=== PATIENT | male | born 1950 | race Caucasian/White ===

== ENCOUNTER → 2017-02-06 09:11 | Outpatient (CLI) | payer OTHER ==
[2017-02-06 10:04] LABS: HEMOGLOBIN A1C 5.8 % (4.8-6.0)
== END | disposition home or self-care (01) ==
LOC: D.LAB 09:11
PROVIDERS: Family Medicine
DX: E11.9 Type 2 diabetes mellitus without complications (principal)

== ENCOUNTER → 2017-08-06 07:51 | Outpatient (CLI) | payer MEDICARE, BC ==
[2017-08-06 08:28] LABS: BASOPHILS 0.4 % (0-2); EOSINOPHILS 1.8 % (0-7); HEMATOCRIT 38.9 % (42.0-54.0); IMMATURE GRANULOCYTES 0.2 % (0-5); LYMPHOCYTES 21.8 % (15-50); MCH 32.5 pg (26.0-34.0); MCV 90.3 fL (80.0-100.0); MEAN PLATELET VOLUME 11.4 fL (7.4-10.4); MONOCYTES 6.7 % (2-11); NEUTROPHILS 69.1 % (40-80); PLATELET COUNT 134 10x3/uL (130-400); RBC 4.31 10x6/uL (4.20-6.10); RDW 13.2 % (11.5-14.5); WBC 5.1 10x3/uL (4.8-10.8)
[2017-08-06 08:36] LABS: HEMOGLOBIN A1C 6.6 % (4.8-6.0)
[2017-08-06 08:57] LABS: BILIRUBIN - TOTAL 1.1 mg/dL (0.2-1.3); CALCIUM 9.2 mg/dL (8.5-10.1); CHOL - HDL RATIO 4.9 ratio (2.3-4.9); CREATININE - SERUM 1.2 mg/dL (0.6-1.3); LDL-HDL RATIO 2.8 ratio (1.5-3.5); PROTEIN - SERUM 7.2 g/dL (6.4-8.2); THYROID STIMULATING HORMONE 2.9 uIU/mL (0.36-3.74)
== END | disposition home or self-care (01) ==
LOC: D.LAB 07:51
PROVIDERS: Family Medicine
DX: Z12.5 Encounter for screening for malignant neoplasm of prostate (principal); Z00.00 Encounter for general adult medical examination without abnormal findings; E11.9 Type 2 diabetes mellitus without complications; I10 Essential (primary) hypertension; E78.81 Lipoid dermatoarthritis

== ENCOUNTER → 2017-11-05 08:23 | Outpatient (CLI) | payer MEDICARE, BC ==
[2017-11-05 09:41] LABS: HEMOGLOBIN A1C 6.3 % (4.8-6.0)
== END | disposition home or self-care (01) ==
LOC: D.LAB 08:23
PROVIDERS: Family Medicine
DX: E11.9 Type 2 diabetes mellitus without complications (principal)

== ENCOUNTER → 2018-04-21 08:22 | Outpatient (CLI) | payer MEDICARE, BC ==
[2018-04-21 09:00] LABS: APPEARANCE CLEAR (CLEAR); BILIRUBIN NEGATIVE (NEGATIVE); COLOR YELLOW (YELLOW); GLUCOSE NEGATIVE (NEGATIVE); KETONE NEGATIVE (NEGATIVE); NITRITE NEGATIVE (NEGATIVE); PROTEIN NEGATIVE (NEGATIVE); SPECIFIC GRAVITY 1.005 (1.005-1.020); UROBILINOGEN NORMAL (NORMAL)
== END | disposition home or self-care (01) ==
LOC: D.LAB 08:00
PROVIDERS: Family Medicine
DX: E11.9 Type 2 diabetes mellitus without complications (principal)

== ENCOUNTER → 2018-08-18 08:32 | Outpatient (CLI) | payer MEDICARE, BC ==
[2018-08-18 09:24] LABS: BASOPHILS 0.5 % (0-2); EOSINOPHILS 1.6 % (0-7); HEMATOCRIT 32.3 % (42.0-54.0); HEMOGLOBIN 10.2 g/dL (13.5-17.5); LYMPHOCYTES 22.6 % (15-50); MCH 24.6 pg (26.0-34.0); MCHC 31.6 g/dL (31.0-37.0); MEAN PLATELET VOLUME 10.2 fL (7.4-10.4); MONOCYTES 7.2 % (2-11); NEUTROPHILS 68.1 % (40-80); RBC 4.14 10x6/uL (4.20-6.10); RDW 14.4 % (11.5-14.5); WBC 5.7 10x3/uL (4.8-10.8)
[2018-08-18 09:26] LABS: PLATELET COUNT 180 10x3/uL (130-400)
[2018-08-18 09:54] LABS: ANION GAP 16.7 mmol/L (8-16); BILIRUBIN - TOTAL 0.73 mg/dL (0.2-1.3); CARBON DIOXIDE 21.4 mmol/L (21.0-32.0); CHOL - HDL RATIO 5.5 ratio (2.3-4.9); CREATININE - SERUM 1.2 mg/dL (0.6-1.3); LDL-HDL RATIO 3.4 ratio (1.5-3.5); POTASSIUM - SERUM 4.1 mmol/L (3.5-5.1); PROTEIN - SERUM 7.6 g/dL (6.4-8.2); THYROID STIMULATING HORMONE 2.05 uIU/mL (0.36-3.74)
== END | disposition home or self-care (01) ==
LOC: D.LAB 08:32
PROVIDERS: Family Medicine
DX: I10 Essential (primary) hypertension (principal); E11.9 Type 2 diabetes mellitus without complications; Z12.5 Encounter for screening for malignant neoplasm of prostate; E78.81 Lipoid dermatoarthritis; E66.9 Obesity, unspecified

== ENCOUNTER → 2019-03-02 07:26 | Outpatient (CLI) | payer MEDICARE, BC ==
[2019-03-02 08:01] LABS: BASOPHILS 0.8 % (0-2); EOSINOPHILS 5.8 % (0-7); HEMOGLOBIN 10.8 g/dL (13.5-17.5); IMMATURE GRANULOCYTES 0.2 % (0-5); LYMPHOCYTES 23.3 % (15-50); MCH 24.7 pg (26.0-34.0); MCHC 31.8 g/dL (31.0-37.0); MCV 77.6 fL (80.0-100.0); MEAN PLATELET VOLUME 10.8 fL (7.4-10.4); NEUTROPHILS 63.9 % (40-80); PLATELET COUNT 155 10x3/uL (130-400); RBC 4.38 10x6/uL (4.20-6.10); RDW 15.3 % (11.5-14.5)
== END | disposition home or self-care (01) ==
LOC: D.LAB 07:26
PROVIDERS: ATTEND Family Medicine
DX: E11.9 Type 2 diabetes mellitus without complications (principal); D64.9 Anemia, unspecified

== ENCOUNTER 2019-08-18 07:50 | Outpatient (CLI) | payer MEDICARE, BC | END 2019-08-18 07:51 | disposition home or self-care (01) | LOC: D.LAB 07:50 → EDSTATUS 17:26 | PROVIDERS: ATTEND Family Medicine | DX: E11.9 Type 2 diabetes mellitus without complications (principal) ==

== ENCOUNTER → 2020-03-21 07:37 | Outpatient (CLI) | payer MEDICARE, BC | END | disposition home or self-care (01) | LOC: D.LAB 07:37 | PROVIDERS: ATTEND Family Medicine | DX: E11.9 Type 2 diabetes mellitus without complications (principal) ==

== ENCOUNTER 2020-05-14 11:20 | Inpatient (IN) | payer MEDICARE, BC ==
[~2020-05-14] VITALS: Ht 177.8 cm; Wt 93.7 kg
[2020-05-14] MEDS ORDERED: CRESTOR20 MG PO (11:38)
[2020-05-14] MEDS ORDERED: GLUCOPHAGE500 MG PO (11:38)
[2020-05-14] MEDS ORDERED: LISINOPRIL40 MG PO (11:38)
[2020-05-14] MEDS ORDERED: BAYER CHEWABLE81 MG PO (11:39)
[2020-05-14 11:58] LABS: HEMATOCRIT 41.3 % (42.0-54.0); HEMOGLOBIN 14.5 g/dL (13.5-17.5); MCH 31.8 pg (26.0-34.0); MCHC 35.1 g/dL (31.0-37.0); MCV 90.6 fL (80.0-100.0); MEAN PLATELET VOLUME 10.8 fL (7.4-10.4); NEUTROPHILS 75.9 % (40-80); PLATELET COUNT 161 10x3/uL (130-400); RBC 4.56 10x6/uL (4.20-6.10); RDW 13.1 % (11.5-14.5); WBC 6.7 10x3/uL (4.8-10.8)
[2020-05-14 12:11] LABS: APTT 29.7 SECONDS (22.8-39.4); INR 1.06 (0.85-1.17); PROTIME 13.8 SECONDS (11.6-15.0)
[2020-05-14 12:17] LABS: CALC OSMOLALITY 282 mosm/kg (275-300); CALCIUM 9.4 mg/dL (8.5-10.1); CARBON DIOXIDE 23.6 mmol/L (21.0-32.0); CHLORIDE - SERUM 105 mmol/L (98-107); CREATININE - SERUM 1.4 mg/dL (0.6-1.3); GLUCOSE 133 mg/dL (74-106); SODIUM 140 mmol/L (136-145); UREA NITROGEN 19 mg/dL (7-18); eGFR NON AFRICAN AMERICAN 54 mL/min (90-120)
[2020-05-14 12:38] LABS: ALBUMIN 4.2 g/dL (3.4-5.0); ALKALINE PHOSPHATASE 59 U/L (30-120); ALT (SGPT) 17 U/L (10-68); BILIRUBIN - TOTAL 1.31 mg/dL (0.2-1.3); CKMB 1.1 U/L (0.0-3.6); CREATINE KINASE 108 UL (21-232); MAGNESIUM - SERUM 1.7 mg/dL (1.8-2.4); PROTEIN - SERUM 7.5 g/dL (6.4-8.2); TROPONIN-I < 0.017 ng/mL (0.000-0.060)
[2020-05-14 13:30] LABS: BILIRUBIN NEGATIVE (NEGATIVE); GLUCOSE NEGATIVE (NEGATIVE); KETONE SMALL mg/dL (NEGATIVE); NITRITE NEGATIVE (NEGATIVE); UROBILINOGEN 4 mg/dL (NORMAL)
[2020-05-14 13:33] LABS: BACTERIA MODERATE /hpf (NEGATIVE); RED CELLS - URINE >50 /hpf (0-5); WHITE CELLS - URINE OCC /hpf (NEGATIVE)
--- NOTE | 2020-05-14 14:00 | NUR ---
PT LEFT ED FOR CT VIA STRETCHER
--- NOTE | 2020-05-14 14:15 | NUR ---
PT RETURNED TO ED VIA STRETCHER FROM CT
--- NOTE | 2020-05-14 16:42 | NUR ---
DR TEAGUE AT PT BEDSIDE
[2020-05-14 17:02] LABS: CKMB 1.1 U/L (0.0-3.6); CREATINE KINASE 115 UL (21-232)
--- NOTE | 2020-05-14 18:40 | NUR ---
PT LEFT ED VIA WC FOR US
[2020-05-14 18:52] LABS: LDL-HDL RATIO 1.2 ratio (1.5-3.5)
--- NOTE | 2020-05-14 18:56 | NUR ---
PT RETURNED TO ED VIA WC FROM US
--- NOTE | 2020-05-14 21:16 | NUR ---
PT A/O X4. AT BEDSIDE. NS INFUSING AT 125ML/HR. TELEMETRY PLACED ON PT. PT RUNNING 63-SR. BP-214/100. DR. TEAGUE NOTIFIED. 0.1 CLONDINE ORDERED. WILL CONTINUE TO MONITOR. 2116-BP-189/97
[2020-05-15 01:28] LABS: CKMB 1.1 U/L (0.0-3.6); CREATINE KINASE 168 UL (21-232)
[2020-05-15 01:29] LABS: TROPONIN-I 0.064 ng/mL (0.000-0.060)
--- NOTE | 2020-05-15 03:24 | NUR ---
I have reviewed this patient and I concur with the Shift Assessment completed by the Licensed Practical Nurse today this shift.
[2020-05-15 04:04] LABS: HEMATOCRIT 36.6 % (42.0-54.0); LYMPHOCYTES 23.1 % (15-50); MCH 32.2 pg (26.0-34.0); MCHC 35.5 g/dL (31.0-37.0); MCV 90.6 fL (80.0-100.0); MEAN PLATELET VOLUME 10.6 fL (7.4-10.4); NEUTROPHILS 69.4 % (40-80); PLATELET COUNT 139 10x3/uL (130-400); RBC 4.04 10x6/uL (4.20-6.10); WBC 5.9 10x3/uL (4.8-10.8)
[2020-05-15 04:24] LABS: ALBUMIN 3.4 g/dL (3.4-5.0); ALKALINE PHOSPHATASE 49 U/L (30-120); ALT (SGPT) 11 U/L (10-68); BILIRUBIN - TOTAL 1.03 mg/dL (0.2-1.3); CALC OSMOLALITY 281 mosm/kg (275-300); CALCIUM 8.1 mg/dL (8.5-10.1); CHLORIDE - SERUM 108 mmol/L (98-107); CKMB 1.2 U/L (0.0-3.6); CREATINE KINASE 175 UL (21-232); CREATININE - SERUM 1.1 mg/dL (0.6-1.3); GLUCOSE 131 mg/dL (74-106); POTASSIUM - SERUM 3.7 mmol/L (3.5-5.1); PROTEIN - SERUM 6.2 g/dL (6.4-8.2); SODIUM 140 mmol/L (136-145); TROPONIN-I 0.066 ng/mL (0.000-0.060); UREA NITROGEN 14 mg/dL (7-18); eGFR NON AFRICAN AMERICAN 71 mL/min (90-120)
[2020-05-15 12:40] VITALS: BP 150/88; Ht 177.8 cm; Wt 93.7 kg
--- NOTE | 2020-05-15 14:37 | NUR ---
PT HAS BEEN ALERT AND ORIENTED THROUGHOUT THE DAY, THAT BEING SAID PT APPEARS TO HAVE DIFFICULTY WITH BASIC TASKS. WHEN TRYINGT O PUT ON A GOWN THIS MORNING WE HAD TO EXPLAIN MULTIPLE TIMES TO PT HOW TO PUT HIS ARMS TROUGH THE ARM HOLES. PT STILL DID IT WRONG EVERY TIME, EVEN WITH MYSELF AND ANOTHER HOLDING THE GOWN UP FOR HIM. IT APPEARS IF EVERY TASK TAKES AN UNUSUAL AMOUNT OF CONCENTRATION, HIS CONFIRMED THIS IS NOT HIS NORMAL.
[2020-05-15 18:06] VITALS: BP 181/90
--- NOTE | 2020-05-15 18:08 | NUR ---
PT AWAKE AND ORIENTED, NO COMPLAINTS OR CONCERNS. CL IN REACH, SRX2.
--- NOTE | 2020-05-15 19:44 | NUR ---
RECIEVED UP IN BED WITH EYES OPEN AND TV ON. ALERT AND ORIENTED X4. UP WITH ASSIST D/T BECOMMING LIGHT HEADED AT TIMES WHEN STANDING. IV TO LT UPPER ARM WIYH NS [id number]. TELEMETRY IN PLACE, DENIES ANY NEEDS AT THIS TIME.
[2020-05-15 21:30] VITALS: BP 179/105
--- NOTE | 2020-05-16 03:10 | NUR ---
C/O IV GOING OFF EARLIER AND ASK IF IT COULD BE MOVED. RESTARTED 22G TO LEFT HAND ATTEMPTS X2. NS INFUSING AT THIS TIME AND NO OTHER C/O VOICED.
[2020-05-16 04:29] VITALS: BP 116/71
[2020-05-16 06:20] VITALS: BP 194/99
[2020-05-16 06:29] VITALS: BP 208/88
--- NOTE | 2020-05-16 08:02 | NUR ---
AM MEDS GIVEN AT THIS TIME. PT UP TO CHAIR, FIXING TO EAT BREAKFAST. DISPATCHER MOTOR VEHICLE AT BEDSIDE TO GET VITAL SIGNS. PT A/O X4, RESP EVEN AND NONLABORED ON RA. HEART MONITOR SHOWING SR WITH RATE IN THE 80'S. LT HAND AND LT AC IV SL. PT DENIES ANY NEEDS AT THIS TIME. CALL LIGHT IN REACH, NAD NOTED, WILL CONTINUE TO MONITOR.
[2020-05-16 09:00] VITALS: BP 147/86
--- NOTE | 2020-05-16 11:26 | NUR ---
BLOOD SUGAR OF 166, 2UNITS GIVEN PER S/S. PT RESTING COMFORTABLY IN BED, DENIES ANY NEEDS, AT BEDSIDE, CALL LIGTH IN REACH.
[2020-05-16 15:00] VITALS: BP 136/80
[2020-05-16 21:21] VITALS: BP 131/76
[2020-05-17 00:39] VITALS: BP 117/73
--- NOTE | 2020-05-17 05:00 | NUR ---
I have reviewed this patient and I concur with the Shift Assessment completed by the Licensed Practical Nurse today this shift.
[2020-05-17 06:27] VITALS: BP 121/75
[2020-05-17 07:13] LABS: ANION GAP 18.7 mmol/L (8-16); CALCIUM 8.1 mg/dL (8.5-10.1); CARBON DIOXIDE 20.2 mmol/L (21.0-32.0); CREATININE - SERUM 1.1 mg/dL (0.6-1.3); POTASSIUM - SERUM 3.9 mmol/L (3.5-5.1)
[2020-05-17 07:44] LABS: HEMATOCRIT 41.2 % (42.0-54.0); HEMOGLOBIN 14.5 g/dL (13.5-17.5); LYMPHOCYTES 15.8 % (15-50); MCH 32.4 pg (26.0-34.0); MCHC 35.2 g/dL (31.0-37.0); MEAN PLATELET VOLUME 11.7 fL (7.4-10.4); NEUTROPHILS 74.8 % (40-80); PLATELET COUNT 136 10x3/uL (130-400); RBC 4.48 10x6/uL (4.20-6.10); RDW 13.6 % (11.5-14.5); WBC 6.6 10x3/uL (4.8-10.8)
[2020-05-17 08:22] VITALS: BP 105/62
[2020-05-17 11:57] VITALS: BP 102/57
--- NOTE | 2020-05-17 12:30 | MORECARE ---
CASE MANAGEMENT DISCHARGE SUMMARY PATIENT: PETER TRINH UNIT: [id number] ADM DATE: 05/15/20 AGE: 69 : 52 SEX: M ROOM/BED: D.2101 AUTHOR: ASHLEIGH,DOC PHYSICIAN: REFERRING PHYSICIAN: GIUSEPPE ORTEGA MD DATE OF SERVICE: 05/17/20 Discharge Plan Patient Name: PETER TRINH Facility: [facility]:[place] : 1950 Planned Disposition: Home or Self Care Anticipated Discharge Date: 05/18/20 Discharge Date: Expected LOS: 3 Initial Reviewer: [email or web address] Initial Review Date: 05/14/2020 Generated: 05/17/20 1:29 pm Comments DCP- Discharge Planning Updated by [email or web address]: Deanne Mullins on 05/17/20 11:[address] DC needs: Per Cards, patient will require an event monitor as OP. CM met with patient to discuss initial discharge planning. Patient is in agreement to proceed with the assessment. Patient reports that he lives at home independently with his , Lachelle Trinh #[phone]. Patient is alert/oriented. PCP: Dr. Ortega. Pharmacy: [facility]. Patient states she has been able to obtain all of her prescribed medications. HHS: No. DME: None. Patient gives permission to speak with family members. Patient is Independent with all ADL's, medication management OR NURSE MANAGER. CM discussed the availability of HH, Rehab, SNF, OP Therapy, DME services. Patient denies the need for additional services at this time and feels safe returning to previous environment. Patient denies hospitalization within the past 30 days. Patient denies the use of community resources OR NURSE MANAGER. Transportation at time of discharge: patient's . CM will follow and assist with DC planning PRN. DCPIA - Discharge Planning Initial Assessment Updated by [email or web address]: Deanne Mullins on 05/17/20 12:28 pm * Is the patient Alert and Oriented? Yes * PCP Dr. Ortega * Pharmacy [facility] [address] * Preadmission Environment Home with Family * ADLs Independent * Equipment None * Other Equipment NA * List name and contact numbers for known caregivers / representatives who currently or will assist patient after discharge: Lachelle Trinh () [phone] * Verbal permission to speak to the caregivers and representatives has been obtained from the patient. Yes * Community resources currently utilized None * Additional services required to return to the preadmission environment? No * Can the patient safely return to the preadmission environment? Yes * Has this patient been hospitalized within the prior 30 days at any hospital? No Coverage Notice Reviewer: [id number] Wendie Mullins Notice Issued Date-Time: 05/16/2020 17:29 Notice Type: IM Discharge Notice Notice Delivered To: Patient Relationship to Patient: Self Station Installation Supervisor Name: Marcin calloway Delivery Method: HAND - Hand Delivered Tiarra Days: Prior Verbal Notification: Recipient Understood Notice: Yes Recipient Signature: Yes Med Rec Note Co-signed by Attending: Coverage Notice Comment: DC IMM signed by patient and to chart. Patient Name: PETER TRINH Page [phone] at 1230 All edits/amendments must be made on the electronic document DICTATION DATE: 05/17/20 1230 BUREAU DIRECTOR: ANTWAN 05/17/20 1230 RPT#: [id number] DC DATE: STATUS: ADM IN [facility] [address] [place] [address] END OF REPORT
[2020-05-17] MEDS ORDERED: HYDRALAZINE HCL25 MG PO (14:13)
--- NOTE | 2020-05-17 15:51 | NUR ---
IV AND TELEMETRY DCD. DC PLANS GIVEN. UNDERSTANDING VOICED. ESCORTED TO CAR BY W/C.
== END 2020-05-17 15:52 | disposition home or self-care (01) | DRG 309 ==
LOC: D.ER 11:20 → D.M2 16:39 → D.EDHOLD 16:39 → OBSVTIME 16:39 → D.M2 18:39
PROVIDERS: Family Medicine; ADMIT Family Medicine; ATTEND Family Medicine
DX: I49.9 Cardiac arrhythmia, unspecified (principal); N39.0 Urinary tract infection, site not specified; R55 Syncope and collapse; I10 Essential (primary) hypertension; E11.9 Type 2 diabetes mellitus without complications; E78.00 Pure hypercholesterolemia, unspecified; I65.21 Occlusion and stenosis of right carotid artery

== ENCOUNTER 2020-05-26 10:00 | Outpatient (CLI) | payer MEDICARE, BC ==
[~2020-05-26] VITALS: Ht 177.8 cm; Wt 104.5 kg
--- NOTE | ~2020-05-26 | HEMODYNAMI ---
PATIENT:PETER TRINH MEDICAL RECORD: [id number] : 54 LOCATION:[place] ADMISSION DATE: 05/26/20 Generatedon:05/26/202013:11 Patient name: PETER TRINH Patient #: [id number] SSN: [id number] : 1950 Date of study: 05/26/2020 Page: Of Hemodynamic Procedure Report Patient Data Patient Demographics Procedure consent was obtained First Name: PETER Gender: Male Last Name: ZIGGY : 1950 Patient #: [id number] Age: 69 year(s) Race: SSN: [id number] Additional ID: [id number] Contact details Address: [address] [place] [address] State: [place] City: [place] Zip code: [address] Past Medical History Allergies: No known allergies Admission Admission Data Admission Date: 05/26/2020 Admission Time: 10:00 Arrival Date: 05/26/2020 Arrival Time: 0:00 Admit Source: Other Insurance Payor: Medicare [facility] #: [id number] Height (in.): 70 BSA: 2.22 (m2) Height (cm.): 177.8 BMI: 33.07 (kg/m2) Weight (lbs.): 230.47 Weight (kg.): 104.54 Lab Results Lab Result Date: 05/26/2020 Lab Result Time: 0:00 Biochemistry Name Units Result Min Max BUN mg/dl 15 --(--*-)-- 7 18 Creatinine mg/dl 1.2 --(---*)-- 0.6 1.3 eGFR ml/min 64.17318 *-(----)-- 90 120 NONAFRICAN CBC Name Units Result Min Max Hematocrit % 42 --(*---)-- 42 54 Hemoglobin g/dl 14.8 --(-*--)-- 13.5 17.5 Procedure Procedure Types Cath Procedure Diagnostic Procedure PPM/ICD PPM Dual Implant Sedation Charges Moderate Sedation up to 30 minutes Procedure Description Procedure Date Procedure Date: 05/26/2020 Procedure Start Time: 12:42 Procedure End Time: 13:09 Procedure Staff Name Function Efrain Huizar MD Performing Physician Huyen Espino RT Monitor Lisa Petty RT Scrub Immanuel Merchant RN Nurse Zohaib Pizano MD Assisting physician Procedure Data Cath Procedure Fluoroscopy Diagnostic fluoroscopy Total fluoroscopy Time: 1 time: 1 min min Diagnostic fluoroscopy Total fluoroscopy dose: dose: 41.2 mGy 41.2 mGy Estimated blood loss: 10 ml Procedure Complications No complications Procedure Medications Medication Administration Route Dosage Oxygen etCO2 Nasal cannula 2 l/min Lidocaine 1% added to field 20 0.9% NaCl I.V. 50 ml/hr Ancef (1Gm/50ml NS) I.V.P.B 1 g Ancef Irrigation Topical 1 g (1gm/500ml NS) Versed I.V. 1 mg Fentanyl I.V. 50 mcg Versed I.V. 1 mg Fentanyl I.V. 50 mcg Versed I.V. 1 mg Fentanyl I.V. 50 mcg Versed I.V. 1 mg Fentanyl I.V. 50 mcg Hemodynamics Rest BSA: 2.22 (m2) HGB: 14.8 (g/dl) O2 Consumption: Estimated: 253.98 (ml/min) O2 Co nsumption indexed: Estimated:114.41 (ml/min/m) Heart Rate: 65 (bpm) Snapshots Pre Cath Intra NCS Post Cath Vital Signs Time Heart Resp SPO2 etCO2 NIBP (mmHg) Rhythm Pain Sedation Rate (ipm) (%) (mmHg) Status Level (bpm) 12:17:28 67 18 100 0 Aborted NSR (Missing) 10(A) 12:22:21 68 16 100 0 202/120(158) NSR (Missing) 10(A) 12:26:47 73 13 99 0 211/117(159) NSR (Missing) 10(A) 12:28:52 66 15 100 0 205/119(164) NSR (Missing) 10(A) 12:32:47 65 14 97 0 200/113(147) NSR (Missing) 10(A) 12:36:41 66 14 99 0 196/110(153) NSR (Missing) 10(A) 12:40:34 66 10 98 0 178/99(141) NSR (Missing) 10(A) 12:44:26 101 23 95 0 182/105(137) NSR (Missing) 9(A) 12:48:17 78 11 94 0 159/94(126) NSR (Missing) 9(A) 12:52:39 90 11 98 0 173/103(147) NSR (Missing) 9(A) 12:56:29 71 12 99 0 172/106(153) NSR (Missing) 9(A) 13:01:26 61 15 96 0 177/109(147) NSR (Missing) 10(A) 13:05:17 81 15 95 0 177/102(118) NSR (Missing) 10(A) 13:09:43 75 11 98 0 183/115(142) NSR (Missing) 10(A) Medications Time Medication Route Dose Verified Delivered Reason Notes Effectiv eness by by 12:27:24 Oxygen etCO2 2 Efrain Buffie used for Nasal l/min St Osiel Merchant RN procedure cannula 12:27:35 Lidocaine added 20ml Efrain Montoyaian for local 1% to vial St Osiel Pizano MD anesthetic field x 2 12:27:52 0.9% NaCl I.V. 50 Efrain Buffie Per ml/hr St Osiel Merchant RN physician 12:29:06 Ancef I.V.P.B 1 g Efrain Buffie used for (1Gm/50ml St Osiel Merchant sales representative consultant NS) 12:29:15 Ancef Topical 1 g Efrain Quaker used for Irrigation St Osiel Pizano MD procedure (1gm/500ml NS) 12:38:30 Versed I.V. 1 mg Efrain Buffie for Bhupendra Merchant RN sedation 12:38:37 Fentanyl I.V. 50 Efrain Buffie for mcg Bhupendra Merchant RN sedation 12:43:02 Versed I.V. 1 mg Efrain Buffie for Bhupendra Merchant RN sedation 12:43:05 Fentanyl I.V. 50 Efrain Buffie for mcg Bhupendra Merchant RN sedation 12:49:20 Versed I.V. 1 mg Efrain Buffie for Bhupendra Merchant RN sedation 12:49:23 Fentanyl I.V. 50 Efrain Buffie for mcg BhupendraOsiel Merchant RN sedation 12:55:40 Versed I.V. 1 mg Efrain Buffie for BhupendraOsiel Merchant RN sedation 12:55:44 Fentanyl I.V. 50 Efrain Gambino for [facility] Osiel Merchant RN sedation Procedure Log Time Note 11:55:49 Informed consent obtained and on chart 11:56:16 Arrival Date: 05/26/2020 12:00:00 AM 11:56:17 Admit Source: Other 11:56:19 Insurance Payor : Medicare 11:56:30 Diagnostic Cath Status : Elective 11:58:01 Patient Height : 70 inches 11:58:05 Patient Weight : 230.47 lbs 11:58:33 Lab Result : eGFR NONAFRICAN 64.08503 ml/min 11:58:33 Lab Result : Creatinine 1.2 mg/dl 11:58:33 Lab Result : BUN 15 mg/dl 11:58:33 Lab Result : Hematocrit 42 % 11:58:33 Lab Result : Hemoglobin 14.8 g/dl 12:08:24 Immanuel Merchant RN sent for patient. Start room use. 12:12:15 Procedure Status PPM/ Gen Change/ Lead Revision/ Temp. 12:12:26 Time tracking: Regular hours (M-F 7:00 - 5:00) 12:12:30 Plan of Care:Hemodynamics will remain stable., Cardiac rhythm will remain stable., Comfort level will be maintained., Respiratory function will remain adequate., Patient/ family verbilizes understanding of procedure., Procedure tolerated without complication., Recovers from procedure without complications.. 12:12:36 Patient received from Pre/Post Procedure Room to CCL 3 Alert and oriented. Tansferred to table in Supine position. 12:12:43 Warm blankets applied, and matt hugger turned on for patient comfort. 12:12:43 Correct patient and procedure confirmed by team. 12:12:43 ECG and BP/O2 sat monitors applied to patient. 12:14:56 Pre-procedure instructions explained to patient. 12:14:56 Pre-op teaching completed and patient verbalized understanding. 12:15:04 Family in waiting room. 12:15:06 Patient NPO since Midnight. 12:15:12 Patient allergic to No known allergies 12:15:16 Is the patient allergic to Iodine/contrast media? No. 12:15:17 Was the patient premedicated? N/A 12:15:20 Is patient on blood thinner?No 12:15:22 Patient diabetic? Yes. 12:15:31 If diabetic: On Metformin? Yes 12:15:35 If on Metformin: Last Dose? 05/26/2020 12:15:37 ----Pre-sedation anethsthesia assessment.---- 12:15:39 Snore? Yes 12:15:47 Previous problem with sedation/anesthesia? No ? 12:15:49 Sleep apnea? Unknown 12:15:56 Deviated septum? No 12:15:58 Opens mouth fully? Yes 12:16:00 Sticks out tongue? Yes 12:16:09 Airway obstruction? No ? 12:16:19 Dentures? No ? 12:16:27 Patient pain scale 0/10 ?. 12:16:33 IV patent on arrival in left antecubital with 0.9% NaCl at [facility]. 12:16:39 Lab results completed and on chart. 12:16:42 Stress Test: no; N/A ? 12:16:48 Left chest area was prepped with chlora-prep and draped in sterile fashion 12:16:50 Alarms reviewed by R. N. 12:16:50 Sharps counted by scrub and verified by R.N. 12:16:53 Use device set MIYA PPM 12:16:55 2-0 Ticron Multipack ([id number]) opened to sterile field. 12:16:56 3-0 Vicryl Single Pack [id number] opened to sterile field. 12:16:56 5-0 Monocryl PS2 [id number] opened to sterile field. 12:16:57 Cautery Tip Forest Economist opened to sterile field. 12:16:57 Cautery Pushbutton Pencil opened to sterile field. 12:16:58 Mepilex Dressing (919853) opened to sterile field. 12:17:07 Vital chart was started 12:17:09 Full Disclosure recording started 12:27:24 Oxygen 2 l/min etCO2 Nasal cannula was administered by Immanuel Merchant RN; used for procedure; Verbal order read back and verified. 12:27:35 Lidocaine 1% 20ml vial x 2 added to field was administered by Zohaib Pizano MD; for local anesthetic; Verbal order read back and verified. 12:27:52 0.9% NaCl 50 ml/hr I.V. was administered by Buffie Merchant RN; Per physician; Verbal order read back and verified. 12:29:06 Ancef (1Gm/50ml NS) 1 g I.V.P.B was administered by Immanuel Merchant RN; used for procedure; Verbal order read back and verified. 12:29:15 Ancef Irrigation (1gm/500ml NS) 1 g Topical was administered by Zohaib Pizano MD; used for procedure; Verbal order read back and verified. 12:29:58 Baseline sample Acquired. 12:30:18 Rhythm: sinus rhythm , 3rd degree heart block 12::53 --------ALL STOP TIME OUT------ 12::53 Final Timeout: patient, procedure, and site verified with staff and physician. All members of the team are in agreement. 12:37:57 Left chest site verified by team. 12:38:08 Fire Safety Assessment: A--An alcohol-based skin anteseptic being used preoperatively., C--Open oxygen or nitrous oxide is being used., D--An ESU, laser, or fiber-optic light is being used. 12:38:13 Physical assessment completed. ASA score P 2 - A patient with mild systemic disease as per Efrain Huizar MD. 12:38:18 Sedation plan: IV Moderate Sedation Medication:Versed, Fentanyl 12:38:30 Versed 1 mg I.V. was administered by Immanuel Merchant RN; for sedation; Verbal order read back and verified. 12:38:37 Fentanyl 50 mcg I.V. was administered by Immanuel Merchant RN; for sedation; Verbal order read back and verified. 12:41:32 Procedure started. 12:41:57 Medtronic inside account representative FRANSICO PICKERING present for procedure. 12:42:09 Pre sharps counted by scrub and verified by RN: Sutures: 7; Sponges: 5; Stick needles: 2; Skin needles: 2; Blade: 1; Cautery: 1 12:42:18 Grounding pad site Left thigh. 12:42:45 Grounding pad site free from injury. 12:42:51 Lidocaine 1% was administered to left subclavicular area by Zohaib Pizano MD . 12:43:02 Versed 1 mg I.V. was administered by Immanuel Merchant RN; for sedation; Verbal order read back and verified. 12:43:05 Fentanyl 50 mcg I.V. was administered by Immanuel Merchant RN; for sedation; Verbal order read back and verified. 12:43:52 Incision made to left subclavicular area. 12:44:37 Generator pocket made/opened. 12:48:17 Right subclavian vein accessed with 7Fr Peel Away Sheath. 12:48:22 Left subclavian vein accessed with 7Fr Peel Away Sheath. 12:49:20 Versed 1 mg I.V. was administered by Immanuel Merchant RN; for sedation; Verbal order read back and verified. 12:49:23 Fentanyl 50 mcg I.V. was administered by Immanuel Merchant RN; for sedation; Verbal order read back and verified. 12:49:26 Medtronic 4074-52 PPM Lead opened to sterile field. 12:49:27 Medtronic 4574-45 PPM Lead opened to sterile field. 12:49:51 Ventricular lead inserted and advanced. 12:49:53 Atrial lead inserted and advanced. 12:50:46 Ventricular lead positioned. 12:51:03 Ventricular lead tested. 12:52:38 Atrial lead positioned. 12:53:11 Atrial lead tested. 12:53:21 Peel-a-way sheath was split and removed. 12:53:46 Ventricular lead attachment was completed with 2-0 ticron. 12:53:53 Atrial lead attachment was completed with 2-0 ticron. 12:55:40 Versed 1 mg I.V. was administered by Immanuel Merchant RN; for sedation; Verbal order read back and verified. 12:55:44 Fentanyl 50 mcg I.V. was administered by Immanuel Merchant RN; for sedation; Verbal order read back and verified. 12:56:13 Medtronic Advisa MRI PPM Dual Generator [id number] opened to sterile field. 12:56:57 PPM Dual was attached to lead(s) and inserted into pocket. 12:57:29 Generator was sutured in place with 2-0 ticron. 13:00:05 Subcutaneous closure was completed with 3-0 vicryl. 13:00:33 Device pocket was irrigated with Ancef. 13:00:41 Immobilizer Extra Large opened to sterile field. 13:03:33 Skin closure was completed with 5-0 monocryl. 13:03:45 Post sharps counted by scrub and verified by RN: Sutures: 2; Sponges: 5; Stick needles: 2; Skin needles: 2; Blade: 1; Cautery: 1 13:03:50 Lt Chest incision was dressed with Mepilex dressing. 13:04:00 Procedure ended.(Physican Out) 13:04:11 Fluoroscopy time 01.00 minutes. 13:04:42 Dose Area Product 4824 mGy/cm. 13:05:00 Flurop Dose total: 41.2 13:05:00 Fluoroscopy dose: 41.2 mGy 13:05:17 Sharps counted by scrub and verified by R.N. 13:05:34 Estimated blood loss: 10 ml 13:05:40 Post procedure rhythm: sinus rhythm , paced 13:05:56 Post procedure instruction explained to patient.Patient verbalizes understanding. 13:05:57 Patient needs reinforcement of post procedure teaching. 13:06:26 Procedure type changed to Cath procedure, Diagnostic procedure, PPM/ICD, PPM Dual Implant, Sedation Charges, Moderate Sedation up to 30 minutes 13:06:45 Procedure and supply charges have been captured, reviewed, submitted and are correct. 13:06:50 Procedure Complication : No complications 13:06:55 Operative report dictated upon procedure completion. 13:06:56 See physician's report for complete and final results. 13:06:58 Report given to Pre/Post Procedure Room. 13:07:02 Patient transfered to Pre/Post Procedure Room with Stretcher. 13:09:04 Procedure ended. 13:09:04 Full Disclosure recording stopped 13:10:33 Vital chart was stopped 13:11:22 End room use (Document Last) Device Usage Item Name Manufacture Quantity Catalog Hospital Part Current Minimal Lot# / Number Charge Number Stock Stock Serial# Code 2-0 Ticron Ethicon 2 [id number] 53637 680606 5 Multipack ([id number]) 3-0 Vicryl Ethicon 1 [id number] 284085 332261 [id number] 5 Single Pack [id number] 5-0 Monocryl Ethicon 1 [id number] 466707 639220 098238 5 PS2 Y495G Cautery Tip Microtek 1 [id number] 053362 632268 733317 5 [employer] Cautery Microtek 1 [id number] 791456 04192 183188 5 Pushbutton [employer]. Pencil Mepilex Cardinal 1 123105 463161 903878 740229 5 Dressing Health (035101) Medtronic Medtronic 1 4074-52 566346 416824 308330 5 4074-52 PPM [id number] Lead EXP :11/25/2021 Medtronic Medtronic 1 4574-45 203294 072552 423310 5 4574-45 PPM [id number] Lead EXP: 12/07/2021 Medtronic Medtronic 1 [id number] 276824 854353 076550 5 Advisa MRI [id number] PPM Dual EXP Generator :08/31/2021 [id number] Immobilizer Cardinal 1 [id number] 658990 713660 894933 5 Extra Large Health Signature Audit [place] Stage Time Signature Unsigned Intra-Procedure 05/26/2020 Lisa Petty 1:10:59 PM RT(R) Intra-Procedure 05/26/2020 Immanuel Merchant RN 1:11:17 PM Intra-Procedure 05/26/2020 Efrain Jackson 1:11:35 PM Osiel FAGAN [address] [place] [address]
--- NOTE | ~2020-05-26 | OP ---
PATIENT NAME: PETER TRINH MEDICAL RECORD: [id number] :54 LOCATION:D.CAT ADMISSION DATE: SURGEON: AMANDA HOLLIDAY MD DATE OF OPERATION: 05/26/2020 PREOPERATIVE DIAGNOSES: Sick sinus syndrome with pauses. POSTOPERATIVE DIAGNOSES: Sick sinus syndrome with pauses. PROCEDURES: 1. Left subclavian vein dual lead pacemaker placement. 2. Fluoroscopic interpretation. SURGEON: Amanda Holliday MD CO-SURGEON: Efrain Ruiz MD REPORT OF PROCEDURE: The patient's left chest was prepped and draped in sterile fashion. A 20 mL of 1% lidocaine with epinephrine was infused into the surrounding tissues. A skin incision was made on the left superior lateral chest and a subcutaneous pouch was made over the pectoral fascia. Needle was used to cannulate the left subclavian vein and the guidewires were advanced with ease. Fluoro was used to note that the wires were in good position in the venous system. Dilator trocar devices were placed over the wires and the wires and dilators were removed. The leads were advanced through the trocars until they rested in the superior vena cava. At this point, Dr. Ruiz positioned the leads appropriately in the atrium and ventricle. Once the leads were noted to be functioning appropriately, then they were sutured into place with 2-0 TiCron. The leads were affixed to the pacemaker and placed into the subcutaneous pouch. The pacemaker was sutured to the pectoral fascia with a single interrupted 2-0 TiCron. We irrigated out the wound with antibiotic solution. The subcutaneous tissues were reapproximated with interrupted 3-0 Vicryl and the skin was closed with running subcutaneous 5-0 Monocryl. COMPLICATIONS: None. CONDITION: Stable. ANESTHESIA: Local MAC. BLOOD LOSS: Minimal. TRANSINT:[id number] Voice Confirmation ID: [id number] DOCUMENT ID: [id number] AMANDA HOLLIDAY MD CC: [id number] DICTATION DATE: 05/26/20 1307 RAW MATERIAL HANDLER: 05/26/20 1635 DEP CLI 05/26/20 [facility] [address] [place] [address]
[~2020-05-26 10:00] MED LIST: BAYER CHEWABLE81 MG PO; CRESTOR20 MG PO; GLUCOPHAGE500 MG PO; HYDRALAZINE HCL25 MG PO; LISINOPRIL40 MG PO
[2020-05-26 11:11] VITALS: BP 178/84; Ht 177.8 cm; Wt 104.5 kg
[2020-05-26 11:25] LABS: APTT 30.8 SECONDS (22.8-39.4); INR 1.02 (0.85-1.17); PROTIME 13.4 SECONDS (11.6-15.0)
[2020-05-26 11:27] LABS: ANION GAP 13.4 mmol/L (8-16); CALCIUM 9.4 mg/dL (8.5-10.1); CARBON DIOXIDE 24.3 mmol/L (21.0-32.0); CREATININE - SERUM 1.2 mg/dL (0.6-1.3); POTASSIUM - SERUM 3.7 mmol/L (3.5-5.1)
[2020-05-26 11:30] LABS: HEMOGLOBIN 14.8 g/dL (13.5-17.5); MCH 32.3 pg (26.0-34.0); MCHC 35.2 g/dL (31.0-37.0); MCV 91.7 fL (80.0-100.0); MEAN PLATELET VOLUME 11.1 fL (7.4-10.4); RBC 4.58 10x6/uL (4.20-6.10); RDW 13.4 % (11.5-14.5)
--- NOTE | 2020-05-26 13:24 | NUR ---
PT ARRIVED BY STRETCHER. PLACED ON MONITORS. ASSESSEMENT COMPLETED. VSS AT THIS TIME. CALL LIGHT WITHIN REACH. FAMILY AT BEDSIDE.
[2020-05-26] MEDS ORDERED: HYDROCODON-ACE1 EA10 PO (13:32)
[2020-05-26] MEDS ORDERED: HYDROCHLOROTHIA25 MG PO (13:33)
--- NOTE | 2020-05-26 13:40 | NUR ---
PT RESTING COMFORTABLY. VSS AT THIS TIME. CALL LIGHT WITHIN REACH. FAMILY AT BEDSIDE. NO OTHER NEEDS AT THIS TIME. LEFT UPPER CHEST DRESSING C/D/I. NO S/S OF HEMATOMA NOTED.
--- NOTE | 2020-05-26 14:10 | NUR ---
PT RESTING COMFORTABLY. VSS. LEFT UPPER CHEST DRESSING C/D/I. NO S/S OF HEMATOMA NOTED. CALL LIGHT WITHIN REACH. NO NEEDS AT THIS TIME. FAMILY AT BEDSIDE. NOTIFIED DR. WALLER OFFICE OF PT HAVING FREQUENT URINATION. THEY WILL CALL IN RX FOR LEVAQUIN. PT HAD UA DONE WHEN HE WAS IN HOSPITAL, BUT DID NOT GO HOME ON ANTIBIOTIC FOR UTI. LET PT AND PT'S KNOW OF THE OFFICE CALLING IN RX FOR UTI.
--- NOTE | 2020-05-26 14:53 | HP ---
PATIENT: PETER TRINH MEDICAL RECORD: [id number] ACCOUNT: [id number] LOCATION:[place] : 54 ADMISSION DATE: 05/26/20 PCP: GIUSEPPE MENA MD HISTORY AND PHYSICAL EXAMINATION HISTORY OF PRESENT ILLNESS: A 69-year-old gentleman initially seen in the clinic with syncope. He has history of diabetes mellitus, hypertension and hyperlipidemia, was subsequently found to have pauses greater than 10 second, sinus arrest, being brought to labor economics professor for permanent pacemaker placement. PAST MEDICAL HISTORY: Includes; 1. History of hypertension. 2. Hyperlipidemia. 3. Diabetes mellitus. ALLERGIES: None known. MEDICATIONS: Hydralazine 25 t.i.d., lisinopril 40 every day, Crestor 20 every day, aspirin 81 every day, metformin 1 gram b.i.d. PHYSICAL EXAMINATION: GENERAL: Pleasant, no acute distress. HEENT: Normocephalic, atraumatic. NECK: No JVD or bruit. HEART: Regular. LUNGS: Good air excursion. ABDOMEN: Soft, nontender. EXTREMITIES: Pulse 2+. IMPRESSION: Sick sinus syndrome with sinus arrest, pause greater than 6 seconds. PLAN: For permanent pacemaker placement. TRANSINT:[id number] Voice Confirmation ID: [id number] DOCUMENT ID: [id number] CLARISA PATEL MD at 1453 CC: [id number] DICTATION DATE: 05/26/20 1301 BLOOD COLLECTOR: 05/26/20 1314 REG [facility] [address] [place] [address]
--- NOTE | 2020-05-26 15:20 | NUR ---
CXR COMPLETED. PT TOLERATED WELL. VSS AT THIS TIME. PIV D/C'D WITH CATH TIP INTACT. PT INSTRUCTED TO GET UP AND DRESSED. VOIDED APPROX 50cc OF URINE IN URINAL. PT'S AT BEDSIDE TO ASSIST.
--- NOTE | 2020-05-26 15:30 | NUR ---
DISCUSSED DISCHARGE INSTUCTIONS WITH PT AND PT'S . THEY VOICED UNDERSTANDING. LEFT UPPER CHEST DRESSING C/D/I. NO S/S OF HEMATOMA NOTED.
--- NOTE | 2020-05-26 15:50 | NUR ---
PT TAKEN DOWN TO VEHICLE BY WHEELCHAIR. NO S/S OF DISTRESS NOTED. ALL BELONGINGS AND PAPERWORK IN HAND.
--- NOTE | 2020-05-30 07:56 | OP ---
PATIENT NAME: MAITE TRINH MEDICAL RECORD: [id number] :54 LOCATION:D.CAT ADMISSION DATE: SURGEON: CLARISA PATEL MD DATE OF OPERATION: 05/26/2020 PROCEDURE: Lead portion of permanent pacemaker placement. DESCRIPTION OF PROCEDURE: After left subclavian was cannulated via modified Seldinger technique via Dr. Pizano, first under fluoroscopic guidance, I placed RV lead in the RV apex without difficulty. After adequate R waves and thresholds were obtained, again under fluoroscopic guidance, I placed the right atrial lead in the right atrial appendage without difficulty. After adequate P waves and thresholds were obtained, leads were attached to appropriate poles of the generator and the pocket was closed via Dr. Pizano. IMPRESSION: Successful lead portion of permanent pacemaker placement on Maite Trinh. ESTIMATED BLOOD LOSS: Minimal. DISPOSITION: To the floor, stable. COMPLICATIONS: None. TRANSINT:[id number] Voice Confirmation ID: [id number] DOCUMENT ID: [id number] CLARISA PATEL MD at 0756 CC: [id number] DICTATION DATE: 05/26/20 1301 CONSUMER LENDER: 05/26/20 1632 DEP CLI 05/26/20 [facility] [address] [place] [address]
== END 2020-05-26 15:50 | disposition home or self-care (01) ==
LOC: D.CATH 10:00
PROVIDERS: ATTEND Internal Medicine Interventional Cardiology
DX: I49.5 Sick sinus syndrome (principal); I10 Essential (primary) hypertension; E78.5 Hyperlipidemia, unspecified; E11.9 Type 2 diabetes mellitus without complications; Z79.84 Long term (current) use of oral hypoglycemic drugs

== ENCOUNTER 2021-01-11 11:36 | Observation (INO) | payer MEDICARE, BC ==
[~2021-01-11] VITALS: Ht 177.8 cm; Wt 91.2 kg
[~2021-01-11 11:36] MED LIST changes: +CRESTOR10 MG PO; +FLORAJEN3 CAPS460 MG PO; +HYDRALAZINE HCL50 MG PO; +HYDROCHLOROTHIA25 MG PO; +HYDROCODON-ACE1 EA10 PO; +LISINOPRIL10 MG PO; +PEPCID PO; +VESICARE5 MG PO; +VITAMIN C PO; +VITAMIN D PO; +ZINC-220220 MG PO
[2021-01-11 12:06] LABS: CALC OSMOLALITY 284 mosm/kg (275-300); CALCIUM 8.7 mg/dL (8.5-10.1); CARBON DIOXIDE 22.7 mmol/L (21.0-32.0); CHLORIDE - SERUM 106 mmol/L (98-107); CREATININE - SERUM 1.8 mg/dL (0.6-1.3); GLUCOSE 192 mg/dL (74-106); POTASSIUM - SERUM 4.3 mmol/L (3.5-5.1); SODIUM 138 mmol/L (136-145); UREA NITROGEN 24 mg/dL (7-18); eGFR NON AFRICAN AMERICAN 40 mL/min (90-120)
[2021-01-11 12:12] LABS: BASOPHILS 0.1 % (0-2); EOSINOPHILS 0.1 % (0-7); HEMATOCRIT 35.1 % (42.0-54.0); HEMOGLOBIN 11.9 g/dL (13.5-17.5); IMMATURE GRANULOCYTES 0.1 % (0-5); LYMPHOCYTE ABS# 0.37 10x3/uL (1.32-3.57); LYMPHOCYTES 5.5 % (15-50); MCH 31.6 pg (26.0-34.0); MCHC 33.9 g/dL (31.0-37.0); MCV 93.1 fL (80.0-100.0); MEAN PLATELET VOLUME 11.6 fL (7.4-10.4); MONOCYTES 2.7 % (2-11); NEUTROPHIL ABS# 6.14 10x3/uL (1.78-5.38); NEUTROPHILS 91.5 % (40-80); RBC 3.77 10x6/uL (4.20-6.10); RDW 13.5 % (11.5-14.5); WBC 6.7 10x3/uL (4.8-10.8)
[2021-01-11 12:13] LABS: PLATELET COUNT 125 10x3/uL (130-400)
[2021-01-11 12:23] LABS: ALBUMIN 3.8 g/dL (3.4-5.0); ALKALINE PHOSPHATASE 60 U/L (30-120); ALT (SGPT) 16 U/L (10-68); BILIRUBIN - TOTAL 0.95 mg/dL (0.2-1.3); CKMB 0.3 U/L (0.0-3.6); CREATINE KINASE 49 UL (21-232); MAGNESIUM - SERUM 1.9 mg/dL (1.8-2.4); PROTEIN - SERUM 6.8 g/dL (6.4-8.2); THYROID STIMULATING HORMONE 1.17 uIU/mL (0.36-3.74); TROPONIN-I < 0.017 ng/mL (0.000-0.060)
[2021-01-11 12:50] LABS: APTT 27.5 SECONDS (22.8-39.4); INR 1.21 (0.85-1.17); PROTIME 14.2 SECONDS (11.6-15.0)
[2021-01-11 13:51] VITALS: BP 163/80
[2021-01-11] MEDS ORDERED: VITAMIN B-121000 MCG PO (15:18)
[2021-01-11] MEDS ORDERED: DONEPEZIL HCL10 MG PO (15:18)
[2021-01-11] MEDS ORDERED: NAMENDA5 MG PO (15:19)
[2021-01-11] MEDS ORDERED: ZOLOFT50 MG PO (15:20)
[2021-01-11 15:22] VITALS: BP 168/86; Ht 177.8 cm; Wt 91.2 kg
[2021-01-11 16:11] VITALS: BP 168/86
--- NOTE | 2021-01-11 16:54 | NUR ---
ADMIT RECEIVED PT FROM ER PER [facility]. AT BEDSIDE. A&OX4. FACE FLUSHED & BRIGHT RED. ABLE TO AMBULATE TO BED FROM DOORWAY WITH SBA. DENIES ANY SOB, LIGHTHEADEDNESS OR CHEST PAIN. PIID TO LEFT AC SPACE. HR REGULAR, BILAT RADIAL/PEDAL PULSES PALPATED. URINAL TO VOID. TELE SHOWS SR W/ PVC'S. DOES HAVE A PACEMAKER. TREMORS NOTED TO BUE. PT REPORTS THAT HE HAD A SYNCOPAL EPISODE THIS MORNING. REPORTS +EMESIS & BLADDER INCONTINENCE W/ EPISODE. PT HAD HIS 1ST COVID VACCINE ON 01/10/21. PT REPORTS CHILLS CURRENTLY. STATES THAT HE HAD COVID PNEUMONIA LAST AUGUST & HASN'T EVER BEEN BACK TO PRECOVID STATE. RECENTLY DIAGNOSED WITH EARLY DEMENTIA. PLEASANT & COOPERATIVE. VERBALIZES UNDERSTANDING TO NOT GET OUT OF BED WITHOUT ASSIST. WILL CONTINUE TO MONITOR.
[2021-01-11 20:42] VITALS: BP 135/70
[2021-01-12] VITALS: BP 128/74
--- NOTE | 2021-01-12 02:36 | NUR ---
I have reviewed this patient and I concur with the Shift Assessment completed by the Licensed Practical Nurse today this shift.
[2021-01-12 04:00] VITALS: BP 127/61
[2021-01-12 06:02] LABS: BASOPHILS 0.3 % (0-2); EOSINOPHILS 0.2 % (0-7); HEMATOCRIT 33.7 % (42.0-54.0); HEMOGLOBIN 11.3 g/dL (13.5-17.5); IMMATURE GRANULOCYTES 0.2 % (0-5); LYMPHOCYTE ABS# 0.57 10x3/uL (1.32-3.57); LYMPHOCYTES 9.9 % (15-50); MCH 31.2 pg (26.0-34.0); MCHC 33.5 g/dL (31.0-37.0); MCV 93.1 fL (80.0-100.0); MEAN PLATELET VOLUME 11.3 fL (7.4-10.4); MONOCYTES 6.4 % (2-11); NEUTROPHIL ABS# 4.79 10x3/uL (1.78-5.38); PLATELET COUNT 133 10x3/uL (130-400); RBC 3.62 10x6/uL (4.20-6.10); RDW 13.7 % (11.5-14.5); WBC 5.8 10x3/uL (4.8-10.8)
--- NOTE | 2021-01-12 06:23 | NUR ---
PT SCD'S ON BOTH FEET.
[2021-01-12 06:52] LABS: ALBUMIN 3.4 g/dL (3.4-5.0); ANION GAP 13.5 mmol/L (8-16); BILIRUBIN - TOTAL 0.83 mg/dL (0.2-1.3); CALCIUM 8.8 mg/dL (8.5-10.1); CARBON DIOXIDE 22.1 mmol/L (21.0-32.0); CHOL - HDL RATIO 2.2 ratio (2.3-4.9); CREATININE - SERUM 1.5 mg/dL (0.6-1.3); LDL-HDL RATIO 0.7 ratio (1.5-3.5); POTASSIUM - SERUM 3.6 mmol/L (3.5-5.1); PROTEIN - SERUM 6.4 g/dL (6.4-8.2); THYROID STIMULATING HORMONE 1.06 uIU/mL (0.36-3.74)
[2021-01-12] MEDS ORDERED: ASPIRIN81 MG PO (07:55)
[2021-01-12 08:32] VITALS: BP 123/74
--- NOTE | 2021-01-12 18:18 | MORECARE ---
CASE MANAGEMENT DISCHARGE SUMMARY PATIENT: PETER TRINH UNIT: [id number] ADM DATE: 01/11/21 AGE: 70 : 54 SEX: M ROOM/BED: D.2109 AUTHOR: CARISSA SOTELO PHYSICIAN: REFERRING PHYSICIAN: GIUSEPPE MENA MD DATE OF SERVICE: 01/12/21 Discharge Plan Patient Name: PETER TRINH [facility] [facility] 1950 Planned Disposition: Anticipated Discharge Date: Discharge Date: 01/12/2021 Expected LOS: Initial Reviewer: [id number] Initial Review Date: 01/11/2021 Generated: 01/12/21 7:17 pm Patient Name: PETER TRINH Page [id number] at 1818 All edits/amendments must be made on the electronic document DICTATION DATE: 01/12/211817 PATROL CAPTAIN: ANTWAN 01/12/211817 RPT#: [id number] DC DATE:01/12/21 STATUS: DIS IN [facility] [address] [place] [address] END OF REPORT
== END 2021-01-12 11:32 | disposition home or self-care (01) ==
LOC: D.ER 11:36 → D.M2 12:44 → D.EDHOLD 12:44 → D.M2 13:37 → OBSVTIME 15:10 → D.M2 01-12 11:32
PROVIDERS: Family Medicine; ADMIT Family Medicine; ATTEND Family Medicine
DX: R55 Syncope and collapse (principal); N28.9 Disorder of kidney and ureter, unspecified; E86.0 Dehydration; I49.5 Sick sinus syndrome; Z95.0 Presence of cardiac pacemaker; E11.9 Type 2 diabetes mellitus without complications; I10 Essential (primary) hypertension; E78.5 Hyperlipidemia, unspecified